=== PATIENT | female | born 1950 | race Caucasian/White ===

== ENCOUNTER 2021-01-07 19:37 | Emergency (ER) | payer MEDICARE, OTHER ==
[2021-01-07] MEDS ORDERED: Sodium Chloride 0.9% 1,000 ML IV ONE (19:52)
[2021-01-07] MEDS ORDERED: Sodium Chloride 0.9% 10 ML Syringe FLUSH PRN (19:53)
[2021-01-07] MEDS ORDERED: Ondansetron 4 MG/2 ML SDV IVPUSH ONE (19:53)
--- NOTE | 2021-01-07 20:24 | EDM.PDOC ---
ED HPI GENERAL MEDICAL PROBLEM - General Chief Complaint: General Stated Complaint: NAUSEA/VOMITING Time Seen by Provider: 01/07/21 20:11 Source of Information: Reports: Patient History Limitations: Reports: No Limitations - History of Present Illness INITIAL COMMENTS - FREE TEXT/NARRATIVE: 70 YO WF PRESENTS TO ER WITH COMPLAINTS OF NAUSEA/VOMITING WHICH BEGAN THIS AM. PT REPORTS SHE WENT TO BED EARLY YESTERDAY DUE TO FEELING TIRED AND WHEN SHE WOKE THIS AM SHE FELT LIKE HER BLOOD PRESSURE WAS ELEVATED. PT TOOK HER BP AT HOME 180/90. PT REPORTED A MILD HEADACHE THIS AM BUT STATES THAT IT HAS SINCE RESOLVED. PT DENIES CHEST PAIN OR SHORTNESS OF BREATH. PT DENIES FEVER/CHILLS, NO COUGH/CONGESTION. PT STATES SHE HAS HAD MOSTLY DRY HEAVES AND SOME FREQUENT LOOSE STOOLS TODAY. Onset: Today Location: Reports: Generalized Severity: Mild Improves with: Reports: Eating Worsens with: Reports: None Associated Symptoms: Reports: No Other Symptoms, Loss of Appetite, Nausea/Vomiting, Weakness. Denies: Cough, Fever/Chills, Headaches, Shortness of Breath - Related Data Allergies Allergy/AdvReac Type Severity Reaction Status Date / Time No Known Allergies Allergy Verified 01/07/21 20:06 Home Meds: Home Meds Losartan Potassium 50 mg PO DAILY 01/07/21 [History] Ondansetron [Zofran ODT] 4 mg PO Q6H PRN #10 tab.dis 01/07/21 [Rx] Sertraline HCl 50 mg PO DAILY 01/07/21 [History] amLODIPine [Norvasc] 5 mg PO DAILY 01/07/21 [History] ED ROS GENERAL - Review of Systems Review Of Systems: See Below Constitutional: Reports: Malaise HEENT: Reports: No Symptoms Respiratory: Reports: No Symptoms Cardiovascular: Reports: No Symptoms Endocrine: Reports: No Symptoms GI/Abdominal: Reports: Decreased Appetite, Flatus, Nausea, Vomiting. Denies: Abdominal Pain, Black Stool, Bloody Stool, Constipation, Diarrhea, Distension : Reports: Frequency. Denies: Dysuria, Urgency Musculoskeletal: Reports: No Symptoms Skin: Reports: No Symptoms Neurological: Reports: No Symptoms Psychiatric: Reports: No Symptoms Hematologic/Lymphatic: Reports: No Symptoms Immunologic: Reports: No Symptoms ED EXAM, GENERAL - Physical Exam Exam: See Below Exam Limited By: No Limitations General Appearance: Alert, WD/WN, No Apparent Distress Eye Exam: Bilateral Eye: EOMI, PERRL Head: Atraumatic, Normocephalic Neck: Normal Inspection, Supple, Non-Tender, Full Range of Motion Respiratory/Chest: No Respiratory Distress, Lungs Clear, Normal Breath Sounds, No Accessory Muscle Use, Chest Non-Tender Cardiovascular: Normal Peripheral Pulses, Regular Rate, Rhythm, No Edema, No Gallop, No JVD, No Murmur, No Rub GI/Abdominal: Normal Bowel Sounds, Soft, Non-Tender, No Organomegaly, No Distention, No Abnormal Bruit, No Mass Back Exam: Normal Inspection, Full Range of Motion, NT Extremities: Normal Inspection, Normal Range of Motion, Non-Tender, Normal Capillary Refill, No Pedal Edema Neurological: Alert, Oriented, CN II-XII Intact, Normal Cognition, Normal Gait, No Motor/Sensory Deficits Psychiatric: Normal Affect, Normal Mood Skin Exam: Warm, Dry, Intact, Normal Color, No Rash Lymphatic: No Adenopathy Course - Vital Signs Last Recorded V/S: Last Vital Signs Temp 98.0 F 01/07/21 20:03 Pulse 70 01/07/21 20:03 Resp 20 01/07/21 20:03 BP 172/90 H 01/07/21 20:03 Pulse Ox 98 01/07/21 20:03 - Orders/Labs/Meds Orders: Active Orders 24 hr Category Date Time Status EKG Documentation Completion [RC] ASDIRECTED Care 01/07/21 19:52 Active Peripheral IV Care [RC] . DIRECTED Care 01/07/21 19:53 Active UA W/MICROSCOPIC [URIN] Stat Lab 01/07/21 19:52 Ordered Sodium Chloride 0.9% [Normal Saline] 1,000 ml Med 01/07/21 19:52 Active IV .BOLUS Sodium Chloride 0.9% [Saline Flush] Med 01/07/21 19:53 Active 10 ml FLUSH Q8HR PRN Peripheral IV Insertion Adult [OM.PC] Routine Oth 01/07/21 19:53 Ordered EKG 12 Lead [EK] Stat Ther 01/07/21 19:52 Ordered Medication Orders Sodium Chloride (Normal Saline) 1,000 mls @ 999 mls/hr IV .BOLUS ONE Stop: 01/07/21 20:52 Last Admin: 01/07/21 19:58 Dose: 999 mls/hr Documented by: MERCEDES Sodium Chloride (Sodium Chloride 0.9% 10 Ml Syringe) 10 ml FLUSH Q8HR PRN PRN Reason: keep vein open Labs: Laboratory Tests 01/07/21 01/07/21 01/07/21 Range/Units 19:50 19:51 20:40 WBC 8.03 (5.00-10.00) 10^3/uL RBC 4.91 (3.80-5.50) 10^6/uL Hgb 15.5 (12.0-16.0) g/dL Hct 46.1 (37.0-47.0) % MCV 93.9 H (82.0-92.0) fL MCH 31.6 H (27.0-31.0) pg MCHC 33.6 (32.0-36.0) g/dL RDW 12.4 (11.5-14.5) % Plt Count 260 (150-400) 10^3/uL MPV 9.0 (7.4-10.4) fL Immature Gran % (Auto) 0.4 (0.0-5.0) % Neut % (Auto) 70.6 H (50.0-70.0) % Lymph % (Auto) 21.3 (20.0-40.0) % [place] % (Auto) 5.6 (2.0-8.0) % Eos % (Auto) 1.5 (1.0-3.0) % Baso % (Auto) 0.6 (0.0-1.0) % Neut # (Auto) 5.67 (2.50-7.00) 10^3/uL Lymph # (Auto) 1.71 (1.00-4.00) 10^3/uL [place] # (Auto) 0.45 (0.10-0.80) 10^3/uL Eos # (Auto) 0.12 (0.10-0.30) 10^3/uL Baso # (Auto) 0.05 (0.00-0.10) 10^3/uL Immature Gran # (Auto) 0.03 (0.00-0.50) 10^3/uL Sodium 142 (136-145) mmol/L Potassium 3.6 (3.5-5.1) mmol/L Chloride 105 (98-107) mmol/L Carbon Dioxide 22.6 (21.0-32.0) mmol/L Anion Gap 18.0 H (5-15) mmol/L BUN 9 (7-18) mg/dL Creatinine 0.56 (0.51-1.17) mg/dL Est Cr Clr Drug Dosing 68.52 mL/min Estimated GFR (MDRD) > 60 mL/min Glucose 141 H (70-140) mg/dL Calcium 8.6 L (8.7-10.3) mg/dL Total Bilirubin 0.6 (0.2-1.0) mg/dL AST 19 (15-37) U/L ALT 28 (14-63) U/L Alkaline Phosphatase 77 (46-116) U/L Total Protein 7.1 (6.4-8.2) g/dL Albumin 4.12 (3.40-5.00) g/dL Lipase 148 (73-393) U/L Urine Color Yellow (YELLOW) Urine Appearance Clear (CLEAR) Urine pH 7.0 (5.0-9.0) Ur Specific [place] 1.020 (1.005-1.030) Urine Protein Negative (NEGATIVE) mg/dL Urine Glucose (UA) Negative (NEGATIVE) mg/dL Urine Ketones 40 H (NEGATIVE) mg/dL Urine Occult Blood Trace-intact H (NEGATIVE) Urine Nitrite Negative (NEGATIVE) Urine Bilirubin Negative (NEGATIVE) Urine Urobilinogen 0.2 (0.2-1.0) E.U./dL Ur Leukocyte Esterase Negative (NEGATIVE) Meds: Medications Generic Name Dose Route Start Last Admin Trade Name Freq PRN Reason Stop Dose Admin Sodium Chloride 1,000 mls @ 999 mls/hr 01/07/21 19:52 01/07/21 19:58 Normal Saline IV 01/07/21 20:52 999 mls/hr .BOLUS ONE Administration Sodium Chloride 10 ml 01/07/21 19:53 Sodium Chloride 0.9% 10 Ml Syringe FLUSH Q8HR PRN keep vein open Discontinued Medications Generic Name Dose Route Start Last Admin Trade Name Freq PRN Reason Stop Dose Admin Lorazepam 1 mg 01/07/21 20:32 Lorazepam 2 Mg/Ml Sdv IVPUSH 01/07/21 20:33 ONETIME ONE Ondansetron HCl 4 mg 01/07/21 19:53 01/07/21 19:58 Ondansetron 4 Mg/2 Ml Sdv IVPUSH 01/07/21 19:54 4 mg ONETIME ONE Administration - Re-Assessments/Exams Free Text/Narrative Re-Assessment/Exam: 01/07/21 20:53 PT REPORTS SHE IS FEELING BETTER AFTER ZOFRAN/ATIVAN AND WOULD LIKE TO GO HOME. PT IS ALERT AND ORIENTED AND AWAKE AT THIS TIME. WILL DISCHARGE HOME Departure - Departure Time of Disposition: 21:07 Disposition: Home, Self-Care 01 Condition: Good Clinical Impression: Viral gastroenteritis, Hyperglycemia Hypertension Qualifiers: Hypertension type: unspecified Qualified Code(s): I10 - Essential (primary) hypertension - Discharge Information Prescriptions: Ondansetron [Zofran ODT] 4 mg PO Q6H PRN #10 tab.dis PRN Reason: Vomiting Instructions: Viral Gastroenteritis, Adult, [id number], Hypertension, Adult, [id number] Referrals: Guerline Streeter MD [Primary Care Provider] - Forms: ED Department Discharge Additional Instructions: 1. DISCHARGE HOME 2. ZOFRAN 4MG ODT #3 TAKE 1 SUBLINGUAL EVERY 6 HOURS NEEDED FOR NAUSEA 3. CLEAR LIQUID DIET AND PROGRESS TOLERATED 4. RETURN TO ER FOR WORSENING SYMPTOMS 5. FOLLOW UP WITH PCP FOR RECHECK OF MILDLY ELEVATED BLOOD SUGAR/GLUCOSE Sepsis Event Note (ED) - Evaluation Sepsis Screening Result: No Definite Risk - Focused Exam Vital Signs: Vital Signs Temp Pulse Resp BP Pulse Ox 01/07/21 20:03 98.0 F 70 20 172/90 H 98 - My Orders Last 24 Hours: My Active Orders 01/07/21 19:52 EKG Documentation Completion [RC] ASDIRECTED UA W/MICROSCOPIC [URIN] Stat Sodium Chloride 0.9% [Normal Saline] 1,000 ml IV .BOLUS EKG 12 Lead [EK] Stat 01/07/21 19:53 Peripheral IV Care [RC] . DIRECTED Sodium Chloride 0.9% [Saline Flush] 10 ml FLUSH Q8HR PRN Peripheral IV Insertion Adult [OM.PC] Routine - Assessment/Plan Last 24 Hours: My Active Orders 01/07/21 19:52 EKG Documentation Completion [RC] ASDIRECTED UA W/MICROSCOPIC [URIN] Stat Sodium Chloride 0.9% [Normal Saline] 1,000 ml IV .BOLUS EKG 12 Lead [EK] Stat 01/07/21 19:53 Peripheral IV Care [RC] . DIRECTED Sodium Chloride 0.9% [Saline Flush] 10 ml FLUSH Q8HR PRN Peripheral IV Insertion Adult [OM.PC] Routine Assessment:: 1. VIRAL GASTROENTERITIS 2. HYPERTENSION- IMPROVED 3. MILD HYPERGLYCEMIA- FOLLOW UP WITH PCP FOR FURTHER EVALUATION AND TREATMENT NEEDED Plan: 1. DISCHARGE HOME 2. ZOFRAN 4MG ODT #3 TAKE 1 SUBLINGUAL EVERY 6 HOURS NEEDED FOR NAUSEA 3. CLEAR LIQUID DIET AND PROGRESS TOLERATED 4. RETURN TO ER FOR WORSENING SYMPTOMS 5. FOLLOW UP WITH PCP FOR RECHECK OF MILDLY ELEVATED BLOOD SUGAR/GLUCOSE
[2021-01-07] MEDS ORDERED: LORazepam 2 MG/ML SDV IVPUSH ONE (20:32)
[2021-01-07 20:35] LABS: CHLORIDE,CL 105 mmol/L (98-107); SODIUM,NA 142 mmol/L (136-145)
[2021-01-07] MEDS ORDERED: Ondansetron 4 MG Tab.DIS PO ONE (21:08)
== END 2021-01-07 21:15 | disposition home or self-care (01) ==
LOC: KA.ED 19:37
DX: A08.4 Viral intestinal infection, unspecified (principal); R73.9 Hyperglycemia, unspecified; I10 Essential (primary) hypertension
CPT/HCPCS: 80053; 81001; 83690; 85025; 93005; 96374; 96375; 99284; 99284-25; A9270-GY; J2060; J2405; J7030